=== PATIENT | female | born 1960 | race Caucasian/White ===

== ENCOUNTER → 2017-01-31 | Outpatient (CLI) | payer OTHER ==
[~2017-01-31] VITALS: Ht 162.6 cm; Wt 60.9 kg
[~2017-01-31] MED LIST: TYLENOL EXTRA500 M2 PO
[2017-01-31 17:15] VITALS: BP 130/89
[2017-01-31 19:47] VITALS: BP 123/73
== END ==
LOC: AMSURD 17:09
DX: J02.9 Acute pharyngitis, unspecified (principal); E86.0 Dehydration; R19.7 Diarrhea, unspecified; R11.2 Nausea with vomiting, unspecified
CPT/HCPCS: C9113; J0696; J1885; J2405; J7030

== ENCOUNTER 2017-03-05 10:26 | Emergency (ER) | payer OTHER ==
[~2017-03-05] VITALS: Ht 162.6 cm; Wt 59.5 kg
[2017-03-05 13:00] VITALS: BP 127/61
== END 2017-03-05 13:10 | disposition home or self-care (01) ==
LOC: ED 10:26
DX: J02.9 Acute pharyngitis, unspecified (principal)